=== PATIENT | female | born 1985 | race Caucasian/White ===

== ENCOUNTER → 2017-01-07 | Outpatient (CLI) | payer BC ==
[~2017-01-07] MED LIST: CALCTAB5 PO; PRENTAB26 PO
[2017-01-07 18:10] LABS: PROLACTIN 6.45 ng/mL
== END | disposition home or self-care (01) ==
LOC: C.LAB1850 16:18
PROVIDERS: ATTEND Obstetrics & Gynecology
DX: Z31.41 Encounter for fertility testing (principal)

== ENCOUNTER → 2017-04-11 | Outpatient (CLI) | payer OTHER ==
[~2017-04-11] MED LIST changes: +ACET-1311 PO; +SERT25TA PO
== END | disposition home or self-care (01) ==
LOC: C.LABSPEC 17:19
PROVIDERS: ATTEND Obstetrics & Gynecology
DX: Z34.81 Encounter for supervision of other normal pregnancy, first trimester (principal); Z3A.00 Weeks of gestation of pregnancy not specified

== ENCOUNTER → 2017-04-18 | Outpatient (CLI) | payer OTHER ==
[2017-04-18 12:14] LABS: BASO % 0.6 %; BASO ABS # 0.05 K/uL (0-0.2); EOS ABS # 0.08 K/uL (0-0.5); HEMATOCRIT 39.8 % (37-47); HEMOGLOBIN 13.6 g/dL (12.0-16.0); IG# 0.02 K/uL (0.00-0.02); LYMPH % 22.5 %; LYMPH ABS # 1.88 K/uL (1.2-3.4); MEAN CELL VOLUME 86.9 fL (80-100); MEAN CORPUSCULAR HEMOGLOBIN 29.7 pg (25-34); MEAN CORPUSCULAR HGB CONC 34.2 g/dl (32-36); MEAN PLATELET VOLUME 9.3 fL (7.4-10.4); MONO % 7.5 %; MONO ABS # 0.63 K/uL (0.11-0.59); NEUT % 68.2 %; NEUT ABS # 5.71 K/uL (1.4-6.5); PLATELET COUNT 359 K/uL (130-400); RED CELL DISTRIBUTION WIDTH CV 13.4 % (11.5-14.5); RED CELL DISTRIBUTION WIDTH SD 42.5 fL (36.4-46.3); WHITE BLOOD COUNT 8.37 K/uL (4.8-10.8)
== END | disposition home or self-care (01) ==
LOC: C.LAB1850 10:45
PROVIDERS: ATTEND Obstetrics & Gynecology
DX: Z34.81 Encounter for supervision of other normal pregnancy, first trimester (principal); Z3A.00 Weeks of gestation of pregnancy not specified

== ENCOUNTER → 2017-04-19 | Day surgery (SDC) | payer OTHER ==
--- NOTE | 2017-04-18 13:57 | HISTORY & PHYSICAL EXAMINATION ---
DATE OF ADMISSION: 04/19/2017 ADMITTING DIAGNOSES: Missed at 10 weeks' gestational age. ADMISSION HISTORY: The patient is a 31-year-old 3, para 1 at approximately 10 weeks' gestational age, who is admitted for suction D&E for missed AB. The patient was seen in the office last week for her new OB visit, which showed a probable twin gestation with debris in the sacs. Repeat ultrasound a week later showed no cardiac activity and the diagnosis of missed AB was made. Treatment options were discussed with the patient and she has been admitted for the above listed procedure. PAST MEDICAL HISTORY: OBSTETRICAL: x1. GYNECOLOGICAL: As above. MEDICAL: Peptic ulcer disease. SURGICAL: D&E and wisdom teeth extraction. ALLERGIES: BENZOYL PEROXIDE. SOCIAL HISTORY: Quit smoking. FAMILY HISTORY: Noncontributory. REVIEW OF SYSTEMS: As per HPI. ADMISSION PHYSICAL EXAMINATION: GENERAL: Shows a pleasant female in no acute distress. VITAL SIGNS: Blood pressure 146/88, height of 5 feet 4 inches, and weight 133 pounds. HEENT EXAMINATION: Unremarkable. NECK: Supple. LUNGS: Clear. HEART: With a regular rhythm and rate. ABDOMEN: Soft and nontender. EXTREMITIES: Showed no deep calf tenderness. NEUROLOGIC: Grossly intact. IMPRESSION: A 31-year-old 3, para 1, 10 weeks' gestational age missed for suction D&E. PLAN: Risks, benefits and alternatives to the surgery have been discussed. While the benefits will be evacuation of the uterine contents, the risks are bleeding, infection, inadvertent perforation of the uterus, failure to remove all gestational tissue, and difficulty getting in the future. The patient understands this. Permit has been signed and she wishes to proceed.
[2017-04-18 14:08] VITALS: BMI 21.0
[~2017-04-19] VITALS: Ht 167.6 cm; Wt 60.5 kg
[~2017-04-19] MED LIST changes: -CALCTAB5 PO; +DOXYCYCLINE HYCLATE 100 MG CAP PO SCH; +FENTANYL CITRATE INJ 50 MCG/1 ML 2 ML VIAL ONE; +HYDROCODONE/ACETAMIN 5/325MG TAB PO PRN; +IBUPROFEN 600 MG TAB PO PRN; +KETOROLAC TROMETHAMINE 30 MG/ML VIAL IV. PRN; +LACTATED RINGER'S 1000ML 1,000 ML IV SCH; +LIDOCAINE HCL 2% 2 ML VIAL (20MG/ML) ONE; +MIDAZOLAM HCL 1 MG/ML 2ML VIAL ONE; +ONDANSETRON INJ 2 MG/ML 2 ML VIAL IV PRN; +OXYTOCIN INJ 10 UNITS/ML VIAL ONE; +PROPOFOL IV EMULSION 10 MG/ML 20 ML VIAL IV ONE; +SODIUM CHLORIDE 0.9% 1000ML 1,000 ML IV SCH
[2017-04-19 05:55] VITALS: BP 122/70; PULSE 78; TEMP 36.8; O2SAT 97; Ht 167.6 cm; Wt 60.5 kg
--- NOTE | 2017-04-19 06:59 | History & Physical Bridge Note ---
H&P Re-Evaluation Bridge Note: I have examined the patient, reviewed the History & Physical and in the interval since the performance of the History & Physical I have noted the following changes of clinical significance: No changes noted
--- NOTE | 2017-04-19 07:57 | [facility] Post Operative Brief Note ---
Immediate Operative Summary Operative Date Apr 19, 2017. Pre-Operative Diagnosis Misses Ab Post-Operative Diagnosis Same Procedure(s) Performed Suction D&E Surgeon Clarissa Lead Nurse Surgeon(s) None Estimated Blood Loss 100 Findings See Below (small firm uterus) 10-12 week size of uterus, POC removed and sent for Pathology, repeat exam Fluids (cc crystalloids) 700 Specimens POC Drains None Anesthesia Type General Complication(s) none Disposition Disposition: Recovery Room / PACU
--- NOTE | 2017-04-19 07:59 | Discharge Instructions-SurgCtr ---
Discharge Instructions Date of Service Apr 19, 2017. Visit Reason for Visit: Missed Discharge Discharge Diagnosis / Problem: same Discharge Goals Goal(s): Therapeutic intervention Activity Recommendations Activity Limitations: as noted below Anesthesia . Post Anesthesia Instructions: If you have had General Anesthesia or IV Sedation: * Do not drive today. * Resume driving when surgeon permits. * Do not make important decisions or sign legal documents today. * Call surgeon for: 1. Temperature elevations greater than 101 degrees F. 2. Uncontrollable pain. 3. Excessive bleeding. 4. Persistent nausea and vomiting. 5. Medication intolerance (nausea, vomiting or rash). * For nausea and vomiting use only clear liquids such as: tea, soda, bouillon until nausea subsides, then gradually increase diet as tolerated. * If you have any concerns or questions, call your surgeon's office. If physician is unavailable and it is an emergency, call 911 or go to the nearest emergency room. . Instructions / Follow-Up Instructions / Follow-Up ACTIVITY RECOMMENDATIONS: * Avoid tampons, douching, hot tubs, pools, and intercourse until bleeding has stopped. * May shower as usual. * No strenuous activity for 24-48 hours. After 24-48 hours, you may do anything you feel like doing (driving and sports are okay). SPECIAL CARE INSTRUCTIONS: Special Diet: * Mild nausea may occur in the immediate post-operative period. * Take clear liquids such as tea, cola or bouillon until all nausea has subsided; you may then resume your normal diet. Special Care: * Light bleeding and vaginal spotting can last from a few days to 3-4 weeks. Call your doctor if bleeding becomes heavier than the heaviest part of your period. * Check your temperature twice a day for one week. If it goes above 100.4 degrees Fahrenheit (38.0 Celsius), notify your doctor. * Call your doctor's office for an appointment for 6 weeks after your surgery. FOLLOW-UP VISIT: Call your doctor's office for an appointment for 6 weeks after your surgery. Diet Recommendations Home Diet: resume previous diet Procedures Procedures Performed: Suction D&E Pending Studies Studies pending at discharge: yes List of pending studies: Pathology Medical Emergencies . Who to Call and When: Medical Emergencies: If at any time you feel your situation is an emergency, please call 911 immediately. . Non-Emergent Contact Non-Emergency issues call your: Package Handler Call Non-Emergent contact if: you have a fever, temperature is above 100.5 . . "Provider Documentation" section prepared by Nico Romo. .
[2017-04-19 09:00] VITALS: BP 113/56; PULSE 63; TEMP 37; O2SAT 100
[2017-04-19 09:30] VITALS: BP 111/64; PULSE 69; TEMP 37; O2SAT 100
[2017-04-19 10:00] VITALS: BP 113/62; PULSE 72; TEMP 37.1; O2SAT 100
--- NOTE | 2017-04-19 10:51 | OPERATIVE REPORT ---
DATE OF OPERATION: 04/19/2017 PREOPERATIVE DIAGNOSIS: Missed . POSTOPERATIVE DIAGNOSIS: Same. PROCEDURE PERFORMED: Suction D&E. SURGEON: Dr. oRmo. ANESTHESIA: General. FINDINGS: Exam under anesthesia revealed an anterior uterus 10-12 week's size. Products of conception removed. Repeat examination showed a small firm anterior uterus. PROCEDURE IN DETAIL: The patient was taken to the operating room after general anesthesia, was placed in dorsal lithotomy position and draped and prepped in usual fashion. Bladder was drained of any residual urine. Single tooth tenaculum was used to grasp the anterior lip of the cervix. The cervical os was dilated with Stewart dilators to a Stewart #33 and then a #12 suction curette was introduced into the uterine cavity. Products of conception were removed on 2 passes of the [place]. Curette was then introduced in the uterine cavity and all 4 quadrants were curettaged. Repeat examination showed a small firm anterior uterus. The patient was taken out of dorsal lithotomy to recovery room in satisfactory condition. I attest to the content of the Intraoperative Record and any orders documented therein. Any exception s are noted below.
--- NOTE | 2017-04-19 12:16 | Anesthesiology Progress Note ---
Anesthesia Post Op Note Date & Time Apr 19, 2017 at 12:16 Vital Signs Pain Intensity: 4 Vital Signs Past 12 Hours Date Time Temp Pulse Resp B/P (MAP) Pulse Ox O2 Delivery O2 Flow Rate FiO2 04/19/17 10:00 37.1 72 18 113/62 100 Room Air 04/19/17 09:30 37 69 18 111/64 100 Room Air 04/19/17 09:00 37 63 18 113/56 100 Room Air 04/19/17 08:56 116/71 04/19/17 08:54 68 16 99 18 08:54 65 16 04/19/17 08:51 118/75 04/19/17 08:49 75 12 99 04/19/17 08:49 74 12 04/19/17 08:46 126/70 04/19/17 08:44 74 20 99 18 08:44 75 20 04/19/17 08:41 118/73 04/19/17 08:39 84 15 04/19/17 08:39 83 15 98 18 08:38 37.0 75 14 118/73 98 Room Air 04/19/17 08:36 123/76 04/19/17 08:34 80 15 99 2/18 08:34 81 15 /218 08:33 83 14 2/18 08:33 86 14 98 /2/18 08:33 83 14 /2/18 08:33 86 14 98 /2/18 08:31 120/69 3/2/18 08:31 120/69 /2/18 08:28 80 20 99 2/18 08:28 80 20 99 2/18 08:28 79 20 3/2/18 08:28 79 20 3/2/18 08:26 122/67 3/2/18 08:26 122/67 /2/18 08:23 87 20 3/2/18 08:23 86 20 100 3/2/18 08:23 86 20 100 3/2/18 08:23 87 20 /2/18 08:21 116/68 3/2/18 08:21 116/68 /2/18 08:18 65 15 100 3/2/18 08:18 65 15 100 /2/18 08:18 64 15 3/2/18 08:18 64 15 04/19/17 08:16 111/73 04/19/17 08:16 111/73 04/19/17 08:13 63 14 04/19/17 08:13 61 14 100 04/19/17 08:13 63 14 04/19/17 08:13 61 14 100 04/19/17 08:11 119/63 04/19/17 08:11 119/63 04/19/17 08:09 114/65 04/19/17 08:09 114/65 04/19/17 08:08 72 18 100 04/19/17 08:08 70 18 04/19/17 08:08 37.0 65 16 114/65 (84) 100 Room Air 04/19/17 08:08 72 18 100 04/19/17 08:08 70 18 04/19/17 05:55 36.8 78 18 122/70 (87) 97 Room Air Notes Mental Status: alert / awake / arousable, participated in evaluation Pt Amnestic to Procedure: Yes Nausea / Vomiting: adequately controlled Pain: adequately controlled Airway Patency, RR, SpO2: stable & adequate BP & HR: stable & adequate Hydration State: stable & adequate Anesthetic Complications: no major complications apparent
== END | disposition home or self-care (01) ==
LOC: C.ACU 05:41
PROVIDERS: ATTEND Obstetrics & Gynecology
DX: O02.1 Missed abortion (principal); Z98.818 Other dental procedure status; Z88.4 Allergy status to anesthetic agent; Z87.891 Personal history of nicotine dependence; Z83.49 Family history of other endocrine, nutritional and metabolic diseases; Z82.49 Family history of ischemic heart disease and other diseases of the circulatory system; Z83.42 Family history of familial hypercholesterolemia; Z83.3 Family history of diabetes mellitus

== ENCOUNTER → 2017-06-28 | Outpatient (CLI) | payer OTHER ==
[~2017-06-28] MED LIST changes: -DOXYCYCLINE HYCLATE 100 MG CAP PO SCH; -FENTANYL CITRATE INJ 50 MCG/1 ML 2 ML VIAL ONE; -HYDROCODONE/ACETAMIN 5/325MG TAB PO PRN; -IBUPROFEN 600 MG TAB PO PRN; -KETOROLAC TROMETHAMINE 30 MG/ML VIAL IV. PRN; -LACTATED RINGER'S 1000ML 1,000 ML IV SCH; -LIDOCAINE HCL 2% 2 ML VIAL (20MG/ML) ONE; -MIDAZOLAM HCL 1 MG/ML 2ML VIAL ONE; -ONDANSETRON INJ 2 MG/ML 2 ML VIAL IV PRN; -OXYTOCIN INJ 10 UNITS/ML VIAL ONE; -PROPOFOL IV EMULSION 10 MG/ML 20 ML VIAL IV ONE; -SODIUM CHLORIDE 0.9% 1000ML 1,000 ML IV SCH
[2017-06-28 16:35] LABS: BASO % 0.9 %; BASO ABS # 0.05 K/uL (0-0.2); EOS % 4.5 %; EOS ABS # 0.24 K/uL (0-0.5); HEMATOCRIT 39.3 % (37-47); HEMOGLOBIN 13.3 g/dL (12.0-16.0); LYMPH % 36.5 %; LYMPH ABS # 1.94 K/uL (1.2-3.4); MEAN CELL VOLUME 88.3 fL (80-100); MEAN CORPUSCULAR HEMOGLOBIN 29.9 pg (25-34); MEAN CORPUSCULAR HGB CONC 33.8 g/dl (32-36); MEAN PLATELET VOLUME 9.2 fL (7.4-10.4); MONO % 9.6 %; MONO ABS # 0.51 K/uL (0.11-0.59); NEUT % 48.5 %; NEUT ABS # 2.58 K/uL (1.4-6.5); PLATELET COUNT 296 K/uL (130-400); RED CELL DISTRIBUTION WIDTH CV 13.2 % (11.5-14.5); RED CELL DISTRIBUTION WIDTH SD 42.6 fL (36.4-46.3); WHITE BLOOD COUNT 5.32 K/uL (4.8-10.8)
[2017-06-28 16:45] LABS: BLOOD UREA NITROGEN 17 mg/dl (7-18); CALCIUM 8.6 mg/dl (8.5-10.1); CARBON DIOXIDE 29 mmol/L (21-32); CREATININE 0.91 mg/dl (0.60-1.20); GLUCOSE 85 mg/dl (70-99); POTASSIUM 3.8 mmol/L (3.5-5.1); SODIUM 139 mmol/L (136-145)
== END | disposition home or self-care (01) ==
LOC: C.LABBFT 15:25
PROVIDERS: ATTEND Nurse Practitioner
DX: R61 Generalized hyperhidrosis (principal)